=== PATIENT | female | born 1945 | race African-American/Black ===

== ENCOUNTER 2020-12-17 14:12 | Inpatient (IN) | payer OTHER ==
[~2020-12-17] VITALS: Ht 170.2 cm; Wt 86.8 kg
[2020-12-17] MEDS ORDERED: SODIUM CHLORIDE 0.9% 500 ML IV ONE (14:30)
[2020-12-17 15:45] LABS: Hemoglobin 8.8 g/dL (12.2-16.2); Platelet Count (auto) 47 10^3/uL (140-450)
[2020-12-17 15:47] LABS: Hematocrit 25.8 % (36.0-46.0); Mean Corpuscular Hemoglobin 30.4 pg (28.0-32.0); Mean Corpuscular Hgb Conc. 34.2 g/dL (32.0-36.0); Mean Corpuscular Volume 89.1 fL (80.0-100.0); Red Blood Cells 2.89 10^6/uL (4.0-5.20); Red Cell Distribution Width 15.7 % (11.8-14.3)
[2020-12-17 16:01] LABS: Basophils % (manual) 0 (0.0-2.0); Blast Cells 0; Eosinophils % (manual) 0 (0-7); Metamyelocytes % 0; Myelocytes % 0; Promyelocytes % 0; Reactive Lymphocytes 0
[2020-12-17 16:04] LABS: Albumin 1.9 g/dL (3.4-5.0); Calcium 9.5 mg/dL (8.5-10.1); Chloride 101 mmol/L (98-107); Potassium 3.1 mmol/L (3.5-5.1); Sodium 137 mmol/L (136-145)
[2020-12-17 16:13] LABS: Alanine Aminotransferase 60 U/L (13-56); Alkaline Phosphatase 78 U/L (45-117); Anion Gap 6 (5-15); Aspartate Aminotransferase 70 U/L (15-37); BUN/Creatinine Ratio 33.3; Bilirubin, Total 0.6 mg/dL (0.2-1.0); Blood Urea Nitrogen 29 mg/dL (7-18); Carbon Dioxide 30 mmol/L (21-32); GFR African American 82 mL/min; GFR Non-African American 68 mL/min; Glucose 231 mg/dL (74-106); Total Protein 5.8 g/dL (6.4-8.2)
[2020-12-17] MEDS ORDERED: POTASSIUM CHL 20MEQ/100ML 100 ML IV ONE (17:30)
[2020-12-17 18:21] LABS: Band Neutrophils % (manual) 3; Lymphocytes % (manual) 27 (10.0-50.0); Monocytes % (manual) 1 (0-12)
[2020-12-17] MEDS ORDERED: MORPHINE SULF INJ 2 MG/ML SYRINGE 1ML IV PRN (21:15)
[2020-12-17] MEDS ORDERED: TEMAZEPAM 15 MG CAP PO PRN (21:15)
[2020-12-17] MEDS ORDERED: POTASSIUM CHL 20 Meq TABLET PO ONE (21:15)
[2020-12-17] MEDS ORDERED: NITROGLYCERIN 0.4 MG SL TAB SL PRN (21:15)
[2020-12-17] MEDS ORDERED: ACETAMINOPHEN 325 MG TAB PO PRN (21:15)
[2020-12-17] MEDS ORDERED: DEXTROSE (50%) 50ML SYRG IV PRN (21:15)
[2020-12-17] MEDS ORDERED: IOHEXOL 350 MG/ML 100ML IJ ONE (21:37)
[2020-12-17] MEDS ORDERED: FILGRASTIM (TBO) 300 MCG/0.5 ML SYRG SC ONE (22:00)
[2020-12-17] MEDS: FAMOTIDINE 20 MG TAB PO SCH (22:00)
[2020-12-17] MEDS: InsuLIN REG 1unit/0.01ml Soln (100units/ml) SC SCH (22:00)
[2020-12-17] MEDS: ACCU-CHEK COMFORT CURVE STRIP VI SCH (22:00)
[2020-12-17] MEDS ORDERED: ENOXAPARIN SOD 80 MG/0.8ML SYRINGE SC SCH (23:15)
[2020-12-18] MEDS: ONDANSETRON HCL 4 MG/2 ML VIAL IV PRN ×2 (03:03→14:21)
[2020-12-18] MEDS: ACCU-CHEK COMFORT CURVE STRIP VI SCH ×4 (06:47→21:50)
[2020-12-18] MEDS: InsuLIN REG 1unit/0.01ml Soln (100units/ml) SC SCH ×4 (06:47→22:03)
[2020-12-18 08:59] VITALS: BP 154/72
[2020-12-18] MEDS ORDERED: FILGRASTIM (TBO) 300 MCG/0.5 ML SYRG SC SCH (10:00)
[2020-12-18] MEDS ORDERED: ENOXAPARIN SOD 40 MG/0.4 ML SYRINGE SC SCH (10:00)
[2020-12-18] MEDS: CARVEDILOL 3.125 MG TAB PO SCH ×2 (10:15→22:05)
[2020-12-18] MEDS: FAMOTIDINE 20 MG TAB PO SCH ×2 (10:15→21:52)
[2020-12-18] MEDS: amLODIPine BESYLATE 5 MG TAB PO SCH (10:15)
[2020-12-18] MEDS: APIXABAN 5 MG TAB PO SCH ×2 (10:15→21:51)
[2020-12-18 11:01] LABS: Hematocrit 25.2 % (36.0-46.0); Hemoglobin 8.8 g/dL (12.2-16.2); Mean Corpuscular Hemoglobin 31.1 pg (28.0-32.0); Mean Corpuscular Hgb Conc. 34.9 g/dL (32.0-36.0); Mean Corpuscular Volume 89.2 fL (80.0-100.0); Platelet Count (auto) 36 10^3/uL (140-450); Red Blood Cells 2.82 10^6/uL (4.0-5.20); Red Cell Distribution Width 15.7 % (11.8-14.3); White Blood Cell 2.5 10^3/uL (4.4-10.8)
[2020-12-18 11:06] LABS: Basophils % (manual) 0 (0.0-2.0); Blast Cells 0; Promyelocytes % 0; Reactive Lymphocytes 0
[2020-12-18 11:20] LABS: Potassium 3.2 mmol/L (3.5-5.1)
[2020-12-18 11:26] LABS: Albumin 1.9 g/dL (3.4-5.0); BUN/Creatinine Ratio 33.3; Bilirubin, Total 0.6 mg/dL (0.2-1.0); Calcium 9.7 mg/dL (8.5-10.1); Total Protein 5.7 g/dL (6.4-8.2)
[2020-12-18] MEDS ORDERED: POTASSIUM CHL 20 Meq TABLET PO ONE (12:00)
[2020-12-18] MEDS ORDERED: HYDR-4798 PO (12:26)
[2020-12-18] MEDS ORDERED: MULT-1018 PO (12:26)
[2020-12-18] MEDS ORDERED: ATOR40TA52 PO (12:26)
[2020-12-18] MEDS ORDERED: INSLANTI SC (12:26)
[2020-12-18] MEDS ORDERED: NORT25CA PO (12:26)
[2020-12-18] MEDS ORDERED: LACT10SO3 PO (12:26)
[2020-12-18] MEDS ORDERED: MIRT1TAB38 PO (12:26)
[2020-12-18] MEDS ORDERED: DOCU-94 PO (12:26)
[2020-12-18] MEDS ORDERED: INSU100I43 SC (12:26)
[2020-12-18] MEDS ORDERED: CARV3.1240 PO (12:26)
[2020-12-18 13:24] LABS: Band Neutrophils % (manual) 8; Eosinophils % (manual) 1 (0-7); Lymphocytes % (manual) 28 (10.0-50.0); Metamyelocytes % 3; Monocytes % (manual) 10 (0-12); Myelocytes % 2
[2020-12-18 16:00] VITALS: BP 140/89
[2020-12-18] MEDS: Glucerna Carbsteady SHAKE Vanilla 8oz PO SCH (18:00)
[2020-12-18 22:00] VITALS: BP 147/69
[2020-12-18] MEDS ORDERED: ATORVASTATIN 20 MG TAB PO SCH (22:00)
[2020-12-19 05:00] VITALS: BP 132/69
[2020-12-19] MEDS: ACCU-CHEK COMFORT CURVE STRIP VI SCH ×2 (06:31→13:22)
[2020-12-19] MEDS: InsuLIN REG 1unit/0.01ml Soln (100units/ml) SC SCH ×2 (06:36→13:25)
[2020-12-19 07:15] LABS: Hemoglobin 8.4 g/dL (12.2-16.2); Mean Corpuscular Hemoglobin 30.7 pg (28.0-32.0); Red Blood Cells 2.75 10^6/uL (4.0-5.20); White Blood Cell 4.5 10^3/uL (4.4-10.8)
[2020-12-19 07:18] LABS: Hematocrit 24.6 % (36.0-46.0); Mean Corpuscular Hgb Conc. 34.3 g/dL (32.0-36.0); Mean Corpuscular Volume 89.3 fL (80.0-100.0); Platelet Count (auto) 32 10^3/uL (140-450); Red Cell Distribution Width 15.6 % (11.8-14.3)
[2020-12-19 07:21] LABS: Basophils % (manual) 0 (0.0-2.0); Blast Cells 0; Myelocytes % 0; Promyelocytes % 0; Reactive Lymphocytes 0
[2020-12-19 07:38] LABS: BUN/Creatinine Ratio 23.3; Calcium 9.8 mg/dL (8.5-10.1); Potassium 3.8 mmol/L (3.5-5.1)
[2020-12-19 07:52] LABS: Band Neutrophils % (manual) 12; Eosinophils % (manual) 1 (0-7); Lymphocytes % (manual) 20 (10.0-50.0); Metamyelocytes % 2; Monocytes % (manual) 10 (0-12)
[2020-12-19 08:00] VITALS: BP 142/82
[2020-12-19] MEDS ORDERED: HYDROcodone-ACET 5/325MG TAB PO PRN (10:00)
[2020-12-19] MEDS: Glucerna Carbsteady SHAKE Vanilla 8oz PO SCH (10:02)
[2020-12-19] MEDS: CARVEDILOL 3.125 MG TAB PO SCH (10:02)
[2020-12-19] MEDS: amLODIPine BESYLATE 5 MG TAB PO SCH (10:03)
[2020-12-19] MEDS: APIXABAN 5 MG TAB PO SCH (10:03)
[2020-12-19] MEDS: FAMOTIDINE 20 MG TAB PO SCH (10:04)
[2020-12-19 14:48] VITALS: BP 117/60
[2020-12-19 16:13] VITALS: BP 132/94
[2020-12-25] MEDS ORDERED: APIXABAN 5 MG TAB PO SCH (10:00)
== END 2020-12-19 16:55 | disposition home or self-care (01) | DRG 175 ==
LOC: EDBD 14:12 → ER 14:12 → TELE 14:13 → TELE-EAST 12-18 08:30
PROVIDERS: ADMIT Nurse Practitioner; ATTEND Internal Medicine
PROC: 05H433Z Insertion of Infusion Device into Left Innominate Vein, Percutaneous Approach (ICD-10-PCS; principal; 2020-12-17)
DX: I26.99 Other pulmonary embolism without acute cor pulmonale (principal); E43 Unspecified severe protein-calorie malnutrition; D61.810 Antineoplastic chemotherapy induced pancytopenia; C25.9 Malignant neoplasm of pancreas, unspecified; I82.411 Acute embolism and thrombosis of right femoral vein; E87.6 Hypokalemia; I95.9 Hypotension, unspecified; D69.6 Thrombocytopenia, unspecified; D70.1 Agranulocytosis secondary to cancer chemotherapy; T45.1X5A Adverse effect of antineoplastic and immunosuppressive drugs, initial encounter; E11.9 Type 2 diabetes mellitus without complications; E04.2 Nontoxic multinodular goiter; E66.9 Obesity, unspecified; E78.5 Hyperlipidemia, unspecified; I11.0 Hypertensive heart disease with heart failure; I25.10 Atherosclerotic heart disease of native coronary artery without angina pectoris; I50.810 Right heart failure, unspecified; I65.23 Occlusion and stenosis of bilateral carotid arteries; I70.0 Atherosclerosis of aorta; Z20.822 Contact with and (suspected) exposure to COVID-19; Z79.01 Long term (current) use of anticoagulants; Z79.4 Long term (current) use of insulin; Z80.52 Family history of malignant neoplasm of bladder; Z82.49 Family history of ischemic heart disease and other diseases of the circulatory system; Z83.3 Family history of diabetes mellitus; Z85.05 Personal history of malignant neoplasm of liver; Z85.07 Personal history of malignant neoplasm of pancreas; Z87.891 Personal history of nicotine dependence; Z90.710 Acquired absence of both cervix and uterus; Z90.49 Acquired absence of other specified parts of digestive tract
CPT/HCPCS: 36415; 70450; 71045; 71275; 80048; 80053; 82962; 83605; 83735; 83880; 84484; 85007; 85027; 85379; 87426; 93005; 93306; 93886; 93970; 96361; 96365; 96366; 96372; 96375; G0378; J1447; J1815; J2405; J3480

== ENCOUNTER 2021-02-07 12:49 | Emergency (ER) | payer OTHER ==
[~2021-02-07] VITALS: Ht 167.6 cm; Wt 77.1 kg
[~2021-02-07 12:49] MED LIST: ATOR40TA52 PO; CARV3.1240 PO; DOCU-94 PO; HYDR-4798 PO; INSLANTI SC; INSU100I43 SC; LACT10SO3 PO; MIRT1TAB38 PO; MULT-1018 PO; NORT25CA PO
[2021-02-07 14:46] LABS: Hemoglobin 10.1 g/dL (12.2-16.2)
[2021-02-07 14:49] LABS: Hematocrit 30.3 % (36.0-46.0); Mean Corpuscular Hemoglobin 30.9 pg (28.0-32.0); Mean Corpuscular Hgb Conc. 33.2 g/dL (32.0-36.0); Mean Corpuscular Volume 93.1 fL (80.0-100.0); Platelet Count (auto) 48 10^3/uL (140-450); Red Blood Cells 3.25 10^6/uL (4.0-5.20); Red Cell Distribution Width 16.1 % (11.8-14.3)
[2021-02-07 15:02] LABS: Albumin 2.6 g/dL (3.4-5.0); Potassium 4.1 mmol/L (3.5-5.1)
[2021-02-07 15:03] LABS: White Blood Cell 1.9 10^3/uL (4.4-10.8)
[2021-02-07 15:05] LABS: Band Neutrophils % (manual) 0; Basophils % (manual) 0 (0.0-2.0); Blast Cells 0; Metamyelocytes % 0; Myelocytes % 0; Promyelocytes % 0; Reactive Lymphocytes 0
[2021-02-07 15:06] LABS: Urine Blood 3+ /uL (Negative); Urine Specific Gravity 1.007 (1.001-1.035)
[2021-02-07 15:07] LABS: Urine Bacteria NONE SEEN /hpf (None Seen); Urine WBC 7 /hpf (0 - 5)
[2021-02-07 15:09] LABS: BUN/Creatinine Ratio 11.4; Bilirubin, Total 0.5 mg/dL (0.2-1.0); Total Protein 7.1 g/dL (6.4-8.2)
[2021-02-07 15:34] VITALS: BP 146/61
[2021-02-07] MEDS ORDERED: cefTRIAXone 1GM/50ML D5W 50 ML IV ONE (15:45)
[2021-02-07 16:03] LABS: Eosinophils % (manual) 2 (0-7); Lymphocytes % (manual) 27 (10.0-50.0); Monocytes % (manual) 3 (0-12)
== END 2021-02-07 16:56 | disposition home or self-care (01) ==
LOC: ER 12:49
DX: N39.0 Urinary tract infection, site not specified (principal); D72.819 Decreased white blood cell count, unspecified; C80.1 Malignant (primary) neoplasm, unspecified; C78.89 Secondary malignant neoplasm of other digestive organs; E11.9 Type 2 diabetes mellitus without complications; E78.5 Hyperlipidemia, unspecified; I10 Essential (primary) hypertension; Z90.49 Acquired absence of other specified parts of digestive tract; Z90.710 Acquired absence of both cervix and uterus; Z87.891 Personal history of nicotine dependence; Z98.61 Coronary angioplasty status
CPT/HCPCS: 36415; 80053; 81001; 85007; 85027; 96365; 99284; J0696

== ENCOUNTER 2021-03-04 05:47 | Emergency (ER) | payer OTHER ==
[~2021-03-04] VITALS: Ht 170.2 cm; Wt 68.0 kg
[2021-03-04 07:05] LABS: Basophils # (auto) 0 10 ^3/uL (0-0.2); Basophils % (auto) 0.4 % (0.0-2.0); Eosinophils # (auto) 0.2 10 ^3/uL (0-0.8); Hemoglobin 10.7 g/dL (12.2-16.2); Lymphocytes % (auto) 24.3 % (10.0-50.0); Mean Corpuscular Hemoglobin 31.4 pg (28.0-32.0); Mean Corpuscular Hgb Conc. 33.3 g/dL (32.0-36.0); Mean Corpuscular Volume 94.5 fL (80.0-100.0); Monocytes # (auto) 0.7 10 ^3/uL (0-1.3); Monocytes % (auto) 17.1 % (0.0-12.0); Neutrophils # (auto) 2.3 10 ^3/uL (1.6-8.6); Neutrophils % (auto) 54.2 % (37.0-80.0); Nucleated Red Blood Cells % 0.2 %; Platelet Count (auto) 126 10^3/uL (140-450); Red Blood Cells 3.39 10^6/uL (4.0-5.20); Red Cell Distribution Width 17.4 % (11.8-14.3); White Blood Cell 4.2 10^3/uL (4.4-10.8)
[2021-03-04 07:22] LABS: Potassium 4.3 mmol/L (3.5-5.1)
[2021-03-04 07:23] LABS: Albumin 2.3 g/dL (3.4-5.0); BUN/Creatinine Ratio 13.5
[2021-03-04 07:25] LABS: Bilirubin, Total 0.6 mg/dL (0.2-1.0); Total Protein 6.4 g/dL (6.4-8.2)
[2021-03-04] MEDS ORDERED: MORPHINE SULFATE 4 MG/ML SYR/VIAL IV ONE (08:00)
[2021-03-04] MEDS ORDERED: ONDANSETRON HCL 4 MG/2 ML VIAL IV ONE (08:00)
[2021-03-04 09:21] VITALS: BP 126/54
== END 2021-03-04 09:30 | disposition home or self-care (01) ==
LOC: ER 05:47 → EDBD 05:47 → ER 09:30
DX: R10.13 Epigastric pain (principal); I10 Essential (primary) hypertension; Z85.07 Personal history of malignant neoplasm of pancreas; Z79.4 Long term (current) use of insulin; Z79.899 Other long term (current) drug therapy; Z90.49 Acquired absence of other specified parts of digestive tract; Z90.710 Acquired absence of both cervix and uterus; Z98.890 Other specified postprocedural states
CPT/HCPCS: 36415; 74176; 80053; 83690; 85025; 93005; 96374; 96375; 99285; J2270; J2405

== ENCOUNTER 2021-03-17 11:44 | Inpatient (IN) | payer OTHER ==
[~2021-03-17] VITALS: Ht 167.6 cm; Wt 86.5 kg
[2021-03-17] MEDS ORDERED: SODIUM CHLORIDE 0.9% 1,000 ML IVB ONE (12:15)
[2021-03-17] MEDS ORDERED: PANTOPRAZOLE 40 MG/10 ML VIAL INJ IV ONE (12:15)
[2021-03-17] MEDS ORDERED: ONDANSETRON HCL 4 MG/2 ML VIAL IV ONE (12:15)
[2021-03-17 13:54] LABS: Basophils # (auto) 0 10 ^3/uL (0-0.2); Eosinophils # (auto) 0 10 ^3/uL (0-0.8); Lymphocytes # (auto) 0.3 10 ^3/uL (0.4-5.4); Monocytes # (auto) 0 10 ^3/uL (0-1.3); Neutrophils # (auto) 0.1 10 ^3/uL (1.6-8.6); Red Cell Distribution Width 16.5 % (11.8-14.3)
[2021-03-17 13:57] LABS: Basophils % (auto) 2.3 % (0.0-2.0); Eosinophils % (auto) 3.4 % (0.0-7.0); Hematocrit 27.9 % (36.0-46.0); Hemoglobin 9.4 g/dL (12.2-16.2); Mean Corpuscular Hemoglobin 30.9 pg (28.0-32.0); Mean Corpuscular Hgb Conc. 33.7 g/dL (32.0-36.0); Mean Corpuscular Volume 91.9 fL (80.0-100.0); Monocytes % (auto) 2.4 % (0.0-12.0); Red Blood Cells 3.03 10^6/uL (4.0-5.20)
[2021-03-17 14:07] LABS: Lymphocytes % (auto) 60.9 % (10.0-50.0)
[2021-03-17 14:09] LABS: White Blood Cell 0.4 10^3/uL (4.4-10.8)
[2021-03-17 14:10] LABS: INR 1.14 (0.9-1.15); Partial Thromboplastin Time 25.3 sec (23.0-31.2)
[2021-03-17 14:16] LABS: Chloride 99 mmol/L (98-107); Potassium 3.1 mmol/L (3.5-5.1); Sodium 134 mmol/L (136-145)
[2021-03-17 14:32] LABS: Alanine Aminotransferase 32 U/L (13-56); Albumin 2.1 g/dL (3.4-5.0); Alkaline Phosphatase 103 U/L (45-117); Anion Gap 10 (5-15); Aspartate Aminotransferase 43 U/L (15-37); BUN/Creatinine Ratio 26.8; Bilirubin, Total 0.8 mg/dL (0.2-1.0); Blood Urea Nitrogen 22 mg/dL (7-18); Calcium 10.2 mg/dL (8.5-10.1); Carbon Dioxide 25 mmol/L (21-32); GFR African American 88 mL/min; GFR Non-African American 72 mL/min; Glucose 305 mg/dL (74-106); Lipase 34 U/L (73-393); Magnesium 2.2 mg/dL (1.6-2.6); Total Protein 6.2 g/dL (6.4-8.2)
[2021-03-17] MEDS ORDERED: POTASSIUM CHL 20MEQ/100ML 100 ML IV ONE (17:00)
[2021-03-17] MEDS ORDERED: INSLISPI SC (17:22)
[2021-03-17] MEDS ORDERED: APIX5TAB PO (17:22)
[2021-03-17] MEDS ORDERED: NITR100C6 PO (17:22)
[2021-03-17] MEDS ORDERED: HYDR4TAB2 PO (17:22)
[2021-03-17] MEDS ORDERED: LUBI8CAP PO (17:22)
[2021-03-17] MEDS ORDERED: DRON2.5C14 PO (17:22)
[2021-03-17] MEDS ORDERED: NITROGLYCERIN 0.4 MG SL TAB SL PRN (18:00)
[2021-03-17] MEDS ORDERED: DOCUSATE CALCIUM 240 MG CAP PO PRN (18:00)
[2021-03-17] MEDS ORDERED: MORPHINE SULFATE INJECTION 2 MG/ML SYRG IV PRN (18:00)
[2021-03-17] MEDS ORDERED: POTASSIUM CHL 20 Meq TABLET PO ONE (18:00)
[2021-03-17] MEDS ORDERED: ACETAMINOPHEN 650 mg PER 20.3 mL UD GT PRN (18:00)
[2021-03-17] MEDS ORDERED: DEXTROSE (50%) 50ML SYRG IV PRN (18:00)
[2021-03-17] MEDS ORDERED: ONDANSETRON HCL 4 MG/2 ML VIAL IV PRN (18:00)
[2021-03-17] MEDS ORDERED: LABETALOL HCL 5 MG/ML 4ML SYRINGE IV PRN (18:00)
[2021-03-17] MEDS ORDERED: LACTULOSE 20Gm/30ML SOLN PO PRN (18:15)
[2021-03-17] MEDS: cefTRIAXone 1GM/50ML D5W 50 ML IV SCH (18:23)
[2021-03-17] MEDS: SODIUM CHLORIDE 0.9% 1,000 ML IV SCH (18:23)
[2021-03-17] MEDS: MORPHINE SULFATE 4 MG/ML SYR/VIAL IV PRN ×2 (19:19→23:38)
[2021-03-17] MEDS ORDERED: diphenhdrAMINE HCL 50 MG/1 ML VL IV PRN (19:30)
[2021-03-17 19:45] LABS: Urine Bacteria NONE SEEN /hpf (None Seen); Urine Blood 3+ /uL (Negative); Urine Budding Yeast LOADED /hpf (None Seen); Urine Mucus FEW (None Seen); Urine Specific Gravity 1.015 (1.001-1.035); Urine WBC 275 /hpf (0 - 5); Urine WBC Clumps PRESENT /hpf (None Seen)
[2021-03-17] MEDS: ACCU-CHEK COMFORT CURVE STRIP VI SCH ×2 (20:00→23:38)
[2021-03-17] MEDS: InsuLIN REG 1unit/0.01ml Soln (100units/ml) SC SCH (20:00)
[2021-03-17 22:00] VITALS: BP 133/73
[2021-03-17] MEDS ORDERED: INSULIN LANTUS (GLARGINE) 1 /0.01ml (100units/ml) SC SCH (22:00)
[2021-03-17 23:24] VITALS: BP 133/73
[2021-03-17] MEDS: PANTOPRAZOLE 40 MG/10 ML VIAL INJ IV SCH (23:38)
[2021-03-17] MEDS ORDERED: PNEUMOCOCCAL VACC POLYS 25 MCG/0.5 ML VIAL IM ONE (23:45)
[2021-03-17] MEDS ORDERED: POTA10TA51 PO (23:46)
[2021-03-17] MEDS ORDERED: PROC10TA2 PO (23:48)
[2021-03-17] MEDS ORDERED: ONDA-144 PO (23:48)
[2021-03-17] MEDS ORDERED: BISA10SU60 PR (23:48)
[2021-03-18] MEDS: metroNIDAZOLE 500MG/100ML 100 ML IV SCH ×4 (00:35→21:06)
[2021-03-18] MEDS: CARVEDILOL 3.125 MG TAB PO SCH ×3 (00:35→22:12)
[2021-03-18] MEDS: LORazepam 0.5 MG TAB PO PRN ×2 (00:38→21:08)
[2021-03-18] MEDS: SODIUM CHLORIDE 0.9% 1,000 ML IV SCH ×3 (00:38→14:58)
[2021-03-18] MEDS: InsuLIN REG 1unit/0.01ml Soln (100units/ml) SC SCH ×6 (00:58→21:07)
[2021-03-18] MEDS: ACCU-CHEK COMFORT CURVE STRIP VI SCH ×5 (04:18→21:08)
[2021-03-18] MEDS: MORPHINE SULFATE 4 MG/ML SYR/VIAL IV PRN ×2 (04:28→20:22)
[2021-03-18 04:44] VITALS: BP 127/77
[2021-03-18 06:36] LABS: Albumin 1.9 g/dL (3.4-5.0); BUN/Creatinine Ratio 28.8; Bilirubin, Total 0.7 mg/dL (0.2-1.0); Calcium 9.7 mg/dL (8.5-10.1); Total Protein 5.5 g/dL (6.4-8.2)
[2021-03-18 06:38] LABS: INR 1.1 (0.9-1.15)
[2021-03-18 06:46] LABS: Basophils # (auto) 0 10 ^3/uL (0-0.2); Hematocrit 24.5 % (36.0-46.0); Mean Corpuscular Hemoglobin 31.3 pg (28.0-32.0); Monocytes # (auto) 0 10 ^3/uL (0-1.3)
[2021-03-18 06:47] LABS: Basophils % (auto) 1.1 % (0.0-2.0); Eosinophils # (auto) 0 10 ^3/uL (0-0.8); Eosinophils % (auto) 1.4 % (0.0-7.0); Hemoglobin 8.3 g/dL (12.2-16.2); Lymphocytes # (auto) 0.3 10 ^3/uL (0.4-5.4); Mean Corpuscular Volume 92.1 fL (80.0-100.0); Monocytes % (auto) 0.8 % (0.0-12.0); Neutrophils # (auto) 0.1 10 ^3/uL (1.6-8.6); Neutrophils % (auto) 20.6 % (37.0-80.0); Nucleated Red Blood Cells % 0.6 %; Red Blood Cells 2.66 10^6/uL (4.0-5.20); Red Cell Distribution Width 16.7 % (11.8-14.3)
[2021-03-18 06:52] LABS: Lymphocytes % (auto) 76.1 % (10.0-50.0)
[2021-03-18 08:31] VITALS: BP 111/67
[2021-03-18] MEDS: cefTRIAXone 1GM/50ML D5W 50 ML IV SCH (09:06)
[2021-03-18] MEDS: PANTOPRAZOLE 40 MG/10 ML VIAL INJ IV SCH ×2 (09:07→21:07)
[2021-03-18 09:38] LABS: White Blood Cell 0.4 10^3/uL (4.4-10.8)
[2021-03-18 12:44] VITALS: BP 108/62
[2021-03-18] MEDS ORDERED: FILGRASTIM(TBO) 480 MCG/0.8 ML SYRG SC ONE (14:45)
[2021-03-18] MEDS ORDERED: POTASSIUM CHL 20 Meq TABLET PO ONE (14:45)
[2021-03-18] MEDS ORDERED: DEXTROSE (50%) 50ML SYRG IV PRN (14:45)
[2021-03-18] MEDS ORDERED: diphenhdrAMINE HCL 50 MG/1 ML VL IV PRN (14:45)
[2021-03-18 17:15] VITALS: BP 131/77
[2021-03-18 22:20] VITALS: BP 128/82
[2021-03-19] VITALS (8 sets, daily range): BP systolic 114–147; BP diastolic 60–80
[2021-03-19] MEDS: SODIUM CHLORIDE 0.9% 1,000 ML IV SCH ×2 (05:01→14:57)
[2021-03-19] MEDS: metroNIDAZOLE 500MG/100ML 100 ML IV SCH ×3 (05:01→21:53)
[2021-03-19] MEDS: ACCU-CHEK COMFORT CURVE STRIP VI SCH ×4 (06:16→22:02)
[2021-03-19] MEDS: InsuLIN REG 1unit/0.01ml Soln (100units/ml) SC SCH ×4 (06:16→22:00)
[2021-03-19] MEDS: MORPHINE SULFATE 4 MG/ML SYR/VIAL IV PRN ×5 (06:41→21:54)
[2021-03-19 07:14] LABS: Basophils # (auto) 0 10 ^3/uL (0-0.2); Eosinophils # (auto) 0 10 ^3/uL (0-0.8); Hemoglobin 8.9 g/dL (12.2-16.2); Lymphocytes # (auto) 0.3 10 ^3/uL (0.4-5.4); Monocytes # (auto) 0 10 ^3/uL (0-1.3); Neutrophils # (auto) 0.2 10 ^3/uL (1.6-8.6); Red Cell Distribution Width 16.8 % (11.8-14.3)
[2021-03-19 07:16] LABS: Basophils % (auto) 0.6 % (0.0-2.0); Eosinophils % (auto) 0.6 % (0.0-7.0); Mean Corpuscular Hemoglobin 31.2 pg (28.0-32.0); Mean Corpuscular Hgb Conc. 34.1 g/dL (32.0-36.0); Mean Corpuscular Volume 91.6 fL (80.0-100.0); Monocytes % (auto) 0.7 % (0.0-12.0); Neutrophils % (auto) 34.2 % (37.0-80.0); Nucleated Red Blood Cells % 0.5 %; Red Blood Cells 2.84 10^6/uL (4.0-5.20)
[2021-03-19 07:18] LABS: Lymphocytes % (auto) 63.9 % (10.0-50.0)
[2021-03-19 07:43] LABS: Potassium 3.8 mmol/L (3.5-5.1)
[2021-03-19 07:52] LABS: Magnesium 1.8 mg/dL (1.6-2.6)
[2021-03-19 09:02] LABS: White Blood Cell 0.5 10^3/uL (4.4-10.8)
[2021-03-19] MEDS: FILGRASTIM(TBO) 480 MCG/0.8 ML SYRG SC SCH (10:27)
[2021-03-19] MEDS: PANTOPRAZOLE 40 MG/10 ML VIAL INJ IV SCH (10:28)
[2021-03-19] MEDS: CARVEDILOL 3.125 MG TAB PO SCH ×2 (10:28→22:02)
[2021-03-19] MEDS: cefTRIAXone 1GM/50ML D5W 50 ML IV SCH (10:29)
[2021-03-19] MEDS ORDERED: POTASSIUM CHL 20 Meq TABLET PO ONE (14:00)
[2021-03-19] MEDS ORDERED: FLUCONAZOLE 200MG/100ML 100 ML IV ONE (14:00)
[2021-03-19] MEDS ORDERED: MAGNESIUM SULFATE 1GM/100ML 100 ML IV ONE (14:00)
[2021-03-19] MEDS ORDERED: VANCOMYCIN HCL 125MG/5ML ORAL SOL PO ONE (14:15)
[2021-03-19] MEDS: VANCOMYCIN HCL 125MG/5ML ORAL SOL PO SCH ×2 (18:19→22:02)
[2021-03-20] MEDS: MORPHINE SULFATE 4 MG/ML SYR/VIAL IV PRN ×5 (04:56→21:26)
[2021-03-20 05:00] VITALS: BP 114/46
[2021-03-20] MEDS: VANCOMYCIN HCL 125MG/5ML ORAL SOL PO SCH ×4 (06:45→21:26)
[2021-03-20] MEDS: ACCU-CHEK COMFORT CURVE STRIP VI SCH ×4 (06:45→21:26)
[2021-03-20] MEDS: metroNIDAZOLE 500MG/100ML 100 ML IV SCH (06:45)
[2021-03-20] MEDS: InsuLIN REG 1unit/0.01ml Soln (100units/ml) SC SCH ×4 (06:46→22:45)
[2021-03-20 07:12] LABS: Hemoglobin 7.4 g/dL (12.2-16.2)
[2021-03-20 07:14] LABS: Mean Corpuscular Hemoglobin 30.9 pg (28.0-32.0); Mean Corpuscular Hgb Conc. 33.8 g/dL (32.0-36.0); Mean Corpuscular Volume 91.5 fL (80.0-100.0); Red Cell Distribution Width 16.6 % (11.8-14.3)
[2021-03-20 07:22] LABS: Magnesium 1.9 mg/dL (1.6-2.6); Potassium 3.4 mmol/L (3.5-5.1)
[2021-03-20 07:42] LABS: White Blood Cell 0.8 10^3/uL (4.4-10.8)
[2021-03-20 08:55] VITALS: BP 131/70
[2021-03-20] MEDS: cefTRIAXone 1GM/50ML D5W 50 ML IV SCH (09:07)
[2021-03-20] MEDS ORDERED: FAMOTIDINE 20 MG TAB PO SCH (10:00)
[2021-03-20] MEDS ORDERED: FLUCONAZOLE 200MG/100ML 100 ML IV SCH (10:00)
[2021-03-20 10:24] LABS: Basophils # (auto) 0 10 ^3/uL (0-0.2); Basophils % (auto) 0.6 % (0.0-2.0); Eosinophils # (auto) 0 10 ^3/uL (0-0.8); Eosinophils % (auto) 0.6 % (0.0-7.0); Lymphocytes # (auto) 0.6 10 ^3/uL (0.4-5.4); Lymphocytes % (auto) 69.3 % (10.0-50.0); Monocytes # (auto) 0.1 10 ^3/uL (0-1.3); Monocytes % (auto) 10.3 % (0.0-12.0); Neutrophils # (auto) 0.2 10 ^3/uL (1.6-8.6); Neutrophils % (auto) 19.2 % (37.0-80.0)
[2021-03-20] MEDS ORDERED: POTASSIUM CHL 20 Meq TABLET PO ONE (10:30)
[2021-03-20] MEDS ORDERED: MAGNESIUM SULFATE 1GM/100ML 100 ML IV ONE (10:30)
[2021-03-20] MEDS: SODIUM CHLORIDE 0.9% 1,000 ML IV SCH (11:52)
[2021-03-20] MEDS: CARVEDILOL 3.125 MG TAB PO SCH ×2 (11:52→21:25)
[2021-03-20] MEDS: FILGRASTIM(TBO) 480 MCG/0.8 ML SYRG SC SCH (11:54)
[2021-03-20 12:56] VITALS: BP 137/72
[2021-03-20 17:01] VITALS: BP 127/71
[2021-03-20 22:00] VITALS: BP 126/65
[2021-03-21] MEDS: MORPHINE SULFATE 4 MG/ML SYR/VIAL IV PRN ×2 (00:40→07:05)
[2021-03-21 05:00] VITALS: BP 133/82
[2021-03-21] MEDS: ACCU-CHEK COMFORT CURVE STRIP VI SCH (06:00)
[2021-03-21] MEDS: InsuLIN REG 1unit/0.01ml Soln (100units/ml) SC SCH (06:00)
[2021-03-21] MEDS: VANCOMYCIN HCL 125MG/5ML ORAL SOL PO SCH (06:00)
[2021-03-21] MEDS: SODIUM CHLORIDE 0.9% 1,000 ML IV SCH (06:00)
[2021-03-21 07:30] LABS: Magnesium 2.4 mg/dL (1.6-2.6); Potassium 3.2 mmol/L (3.5-5.1)
== END 2021-03-21 07:22 | disposition short-term general hospital (02) | DRG 371 ==
LOC: ER 11:46 → TELE 18:18 → TELE-WESTW 20:52
PROVIDERS: ADMIT Family Medicine; ATTEND Internal Medicine
PROC: 30233R1 Transfusion of Nonautologous Platelets into Peripheral Vein, Percutaneous Approach (ICD-10-PCS; principal; 2021-03-19)
DX: A04.72 Enterocolitis due to Clostridium difficile, not specified as recurrent (principal); D61.810 Antineoplastic chemotherapy induced pancytopenia; K62.5 Hemorrhage of anus and rectum; E44.0 Moderate protein-calorie malnutrition; C25.9 Malignant neoplasm of pancreas, unspecified; E87.1 Hypo-osmolality and hyponatremia; B37.49 Other urogenital candidiasis; D50.0 Iron deficiency anemia secondary to blood loss (chronic); J02.9 Acute pharyngitis, unspecified; E87.6 Hypokalemia; E83.52 Hypercalcemia; E78.5 Hyperlipidemia, unspecified; M54.5 Low back pain; E11.65 Type 2 diabetes mellitus with hyperglycemia; I11.0 Hypertensive heart disease with heart failure; T45.1X5A Adverse effect of antineoplastic and immunosuppressive drugs, initial encounter; Z20.822 Contact with and (suspected) exposure to COVID-19; Y92.89 Other specified places as the place of occurrence of the external cause; Z80.52 Family history of malignant neoplasm of bladder; Z68.27 Body mass index [BMI] 27.0-27.9, adult; Z82.49 Family history of ischemic heart disease and other diseases of the circulatory system; Z79.4 Long term (current) use of insulin; Z85.05 Personal history of malignant neoplasm of liver; Z85.07 Personal history of malignant neoplasm of pancreas; Z86.711 Personal history of pulmonary embolism; Z86.718 Personal history of other venous thrombosis and embolism; Z87.891 Personal history of nicotine dependence; Z90.49 Acquired absence of other specified parts of digestive tract; Z90.710 Acquired absence of both cervix and uterus; Z86.19 Personal history of other infectious and parasitic diseases; I50.9 Heart failure, unspecified
CPT/HCPCS: 36415; 71045; 74176; 80053; 81001; 82962; 83036; 83690; 83735; 83880; 84132; 84443; 84484; 85007; 85025; 85027; 85610; 85730; 86850; 86900; 86901; 87045; 87070; 87081; 87086; 87088; 87426; 87427; 87493; 87804; 87880; 93005; 93970; 96361; 96365; 96375; 96376; 97163; 99291; C9113; G0378; J0696; J1447; J1450; J1815; J2405; J3490